=== PATIENT | female | born 1985 | race Caucasian/White ===

== ENCOUNTER 2018-11-11 12:05 | Emergency (ER) | payer MEDICAID ==
[2018-11-11] MEDS ORDERED: NS 0.9% 1000 ML** 1,000 ML IV ONE (12:09)
[2018-11-11] MEDS ORDERED: Metoclopramide IV* 5 MG/ML 2 ML VIAL IV ONE (12:58)
[2018-11-11] MEDS ORDERED: diPHENhydraMINE IV* 50 MG/ML 1 ml VIAL (BENADRYL) IV ONE (12:58)
[2018-11-11] MEDS ORDERED: Ketorolac INJ* 30 MG/ML 1 ML VIAL IV ONE (12:58)
--- NOTE | 2018-11-11 13:21 | ED ---
Headache - HPI Summary HPI Summary: This patient is a 33-year-old female with a history of migraines presenting to the ED with migraine since last evening. She states this is associated with photophobia and auras. She states this is her typical migraine, however she has not had this in several years. She typically has Imitrex, but is currently at a rehabilitation center and states "they're not giving it to me properly." She has also been endorsing a lot of medication changes. She states they have given her several sedatives and different medications which could be contributory to her headache-like symptoms. She denies this is the worst headache of her life, however this is consistent with her previous migraines. She denies any visual changes or symptoms other than her photophobia. Denies any CP or SOB. Denies any dizziness or lightheadedness. - History Of Current Complaint Chief Complaint: EDHeadache Stated Complaint: HEADACHE PER EMS Time Seen by Provider: 11/11/18 12:09 Hx Obtained From: Patient Onset/Duration: Sudden Onset Initially Headache Was: Initial Pain Scale(0-10)= - 9 Currently Pain Is: Current Pain Scale(0-10)= - 9 Timing: Constant Character: Throbbing Location of Headache: Frontal Aggravating Factor: Nothing Allevating Factors: Nothing Associated Signs And Symptoms: Negative - Risk Factors SAH Risk Factors: Negative Meningitis Risk Factors: Negative SDH Risk Factors: Negative Temporal Arteritis Risk Factors: Negative - Allergies/Home Medications Allergies/Adverse Reactions: Allergies Allergy/AdvReac Type Severity Reaction Status Date / Time morphine Allergy Severe Anaphylatic Verified 11/11/18 12:16 Shock shellfish derived Allergy Severe Swelling Verified 11/11/18 12:16 Of Face,Lips,& Throat Home Medications: Home Medications Acetaminophen TAB* [Tylenol TAB*] 650 mg PO Q4H PRN 11/11/18 [History Confirmed 11/11/18] Gabapentin 300 mg PO TID 11/11/18 [History Confirmed 11/11/18] Multivitamins/Minerals TAB* [Theragran/minerals TAB*] 1 tab PO DAILY 11/11/18 [ History Confirmed 11/11/18] Naproxen [Naproxen 375 mg tab] 375 mg PO BID 11/11/18 [History Confirmed ] Nicotine PATCH 14 MG/24 HR* 14 mg TRANSDERM DAILY 11/11/18 [History Confirmed ] Prazosin HCl 2 mg PO BEDTIME 11/11/18 [History Confirmed 11/11/18] Quetiapine Fumarate [Seroquel 50 mg tab] 1 - 2 tab PO BEDTIME 11/11/18 [History Confirmed 11/11/18] SUMAtriptan TAB* [Imitrex TAB*] 100 mg PO Q2H PRN 11/11/18 [History Confirmed ] Topiramate [Topamax] 50 mg PO BID 11/11/18 [History Confirmed 11/11/18] hydrOXYzine HCL TAB* [Atarax TAB 50 MG *] 50 mg PO TID 11/11/18 [History Confirmed 11/11/18] traZODone TAB* [Desyrel TAB*] 50 mg PO BEDTIME 11/11/18 [History Confirmed 11/11] PMH/Surg Hx/FS Hx/Imm Hx Previously Healthy: Yes - Immunization History Hx Pertussis Vaccination: No Immunizations Up to Date: Yes Infectious Disease History: No Infectious Disease History: Denies: Traveled Outside the [place] in Last 30 Days - Social History Occupation: Employed Full-time Lives: With Family Alcohol Use: None Hx Substance Use: No Substance Use Type: Reports: None Substance Use Comment - Amount & Last Used: hx cocaine october 04, 2018 Hx Tobacco Use: No Smoking Status (MU): Former Smoker Review of Systems Constitutional: Negative Negative: Fever, Chills, Fatigue, Skin Diaphoresis Negative: Palpitations, Chest Pain Negative: Shortness Of Breath, Cough Positive: Nausea. Negative: Vomiting, Diarrhea Negative: Arthralgia, Myalgia Negative: Rash Positive: Headache - 9/10 with aura. Negative: Weakness, Paresthesia, Numbness All Other Systems Reviewed And Are Negative: Yes Physical Exam Triage Information Reviewed: Yes Vital Signs On Initial Exam: Initial Vitals Temp Pulse Resp BP Pulse Ox 99.2 F 81 16 148/82 97 11/11/18 12:07 11/11/18 12:07 11/11/18 12:07 11/11/18 12:07 11/11/18 12:07 Vital Signs Reviewed: Yes Appearance: Positive: Ill-Appearing, Pain Distress Skin: Positive: Warm, Skin Color Reflects Adequate Perfusion Head/Face: Positive: Normal Head/Face Inspection Eyes: Positive: EOMI, ANGELINA, Conjunctiva Clear Neck: Positive: Supple, No Lymphadenopathy Respiratory/Lung Sounds: Positive: Clear to Auscultation, Breath Sounds Present Cardiovascular: Positive: RRR, Pulses are Symmetrical in both Upper and Lower Extremities. Negative: Leg Edema Left, Leg Edema Right Musculoskeletal: Positive: Normal, Strength/ROM Intact Neurological: Positive: Sensory/Motor Intact, Alert, Oriented to Person Place, Time, Speech Normal Psychiatric: Positive: Normal, Affect/Mood Appropriate AVPU Assessment: Alert Diagnostics - Vital Signs Vital Signs Temp Pulse Resp BP Pulse Ox 11/11/18 12:07 99.2 F 81 16 148/82 97 - Laboratory Lab Statement: Any lab studies that have been ordered have been reviewed, and results considered in the medical decision making process. Headache Course/Dx - Course Course Of Treatment: Physical This patient is currently at a treatment facility and has not been receiving her Imitrex as prescribed. She is also endorsing a change of medications and has been prescribed several different medications. She states she has not used any medications and has been given several sedatives including trazodone, gabapentin, Seroque, etc all at bedtime. She denies any other symptoms other than her migraine which is associated with an aura. On arrival into the ED, the patient appears in discomfort with a towel over her head/eyes. She is given Toradol, Benadryl, Reglan and fluids. Pt improved and is currently rating pain 1/10. Ok for DC. Discharged with migraine. - Diagnoses Provider Diagnoses: Migraine Discharge ED - Sign-Out/Discharge Documenting (check all that apply): Patient Departure Patient Received Moderate/Deep Sedation with Procedure: No - Discharge Plan Condition: Stable Disposition: HOME Patient Education Materials: Migraine Headache (ED) Forms: *Gen. Provider Communication Referrals: No Primary Care Phys,NOPCP [Primary Care Provider] - Additional Instructions: Continue to take your medications as prescribed, however have a discussion with your doctor regarding her medication dosages Imitrex 100 mg at the first sign of a migraine, you may repeat this in approximately 2 hours Drink plenty of fluids - Billing Disposition and Condition Condition: STABLE Disposition: Home - Attestation Statements Provider Attestation: I was available for consultation for this patient. I did not evaluate the patient or participate in any medical decision making or disposition decisions unless I am specifically named in the chart as having consulted on the patient. If I have consulted on the patient, please see my own ED note on the patient encounter. Jerica Jewell MD
[2018-11-11 14:26] VITALS: BP 123/78
== END 2018-11-11 14:25 | disposition home or self-care (01) ==
LOC: ED 12:05
DX: G43.909 Migraine, unspecified, not intractable, without status migrainosus (principal); R11.0 Nausea; Z79.899 Other long term (current) drug therapy; Z87.891 Personal history of nicotine dependence
CPT/HCPCS: 96361; 96374; 96375; 99283; J1200; J1885; J2765